=== PATIENT | male | born 1985 | race Two or more races ===

== ENCOUNTER 2017-11-14 11:32 | Observation (INO) | payer BC ==
[2017-11-14 11:39] VITALS: BMI 23.3
--- NOTE | 2017-11-14 12:19 | PDOC ---
History of Present Illness - General Chief Complaint: Palpitations Stated Complaint: PALPITATIONS Time Seen by Provider: 11/14/17 12:05 History Source: Patient Exam Limitations: No Limitations - History of Present Illness Initial Comments: 11/14/17 12:47 Patient came for evaluation of recurrent episodes of palpitations and rapid heart rate. States onto previous occasions patient was resting the first episode where all of a sudden he felt a pounding to his chest wall that made him short of breath with radiating pain spontaneously resolved. States last , 5 days ago left the gym was driving home and felt he had to cake puller because of this pounding in his chest again. States became short of breath,? Hyperventilating? service aide 911. By the time EMS arrived patient states he felt fine and chose not to pursue an evaluation. States today again after leaving the gym from doing exercises- only lifting, nonaerobic states was not extraordinarily exertive, experiences same type of palpitation. Cousin was in the car who reports patient was not diaphoretic, did not appear to be hyperventilating but had complaints of this palpitations. A both chose to come to emergency department for his evaluation. Has never been evaluated for this kind of pain. No family member has cardiac issues other than elderly grandmother with a pacemaker. Patient denies recent URI including cough, cold, fevers or sore throat pain. Patient denies history issue or cardiac anomalies. Although he was a premature child and is uncertain as to how many weeks early. Has never taken any medications for relief of symptoms. Does not drink, smoke any substance, no drug use. Works as a wafer fab technician for hospital beds but has not performed any heavy lifting or any recent trauma. Timing/Duration: unsure, 4-6 hours Severity: mild, moderate Associated Symptoms: reports: chest pain. denies: loss of appetite, malaise, nausea/vomiting Past History - Travel Traveled outside of the country in the last 30 days: No Close contact w/someone who was outside of country & ill: No - Past Medical History Allergies/Adverse Reactions: Allergies Allergy/AdvReac Type Severity Reaction Status Date / Time No Known Allergies Allergy Verified 11/14/17 11:57 Home Medications: Ambulatory Orders No Home Medications 0 dose .ROUTE UTDICT 11/13/13 COPD: No - Suicide/Smoking/Psychosocial Hx Smoking Status: No Smoking History: Never smoked Number of Cigarettes Smoked Daily: 0 Information on smoking cessation initiated: No Hx Alcohol Use: No Drug/Substance Use Hx: No Substance Use Type: None Review of Systems - Review of Systems Able to Perform ROS?: Yes Is the patient limited [place] proficient: Yes Constitutional: Yes: Symptoms Reported, See HPI HEENTM: Yes: See HPI. No: Symptoms Reported Respiratory: Yes: See HPI, Shortness of Breath, SOB with Exertion (reports a mild exercise intolerance). No: Symptoms reported, Cough Integumentary: Yes: Symptoms Reported All Other Systems: Reviewed and Negative *Physical Exam - Vital Signs Last Vital Signs Temp Pulse Resp BP Pulse Ox 98.0 F 118 H 18 120/69 100 11/14/17 11:35 11/14/17 11:35 11/14/17 11:35 11/14/17 11:35 11/14/17 11:35 - Physical Exam General Appearance: Yes: Nourished, Appropriately Dressed. No: Apparent Distress, Mild Distress HEENT: positive: TRACIE, Normal ENT Inspection, TMs Normal, Pharynx Normal Neck: positive: Supple. negative: Tender, Lymphadenopathy (R), Lymphadenopathy (L) Respiratory/Chest: positive: Lungs Clear, Normal Breath Sounds, Other (patient has some tenderness reproduced with palpation to the left-sided chest wall, worse with flexion and extension to arm) Cardiovascular: positive: Regular Rhythm, Regular Rate Gastrointestinal/Abdominal: positive: Normal Bowel Sounds, Soft Extremity: positive: Normal Capillary Refill, Normal Inspection. negative: Tender Integumentary: positive: Normal Color, Dry, Warm Neurologic: positive: nba player II-XII NML intact, Fully Oriented, Alert, Normal Mood/ Affect, Normal Response, Motor Strength 5/5 Heart Score/ECG Review - ECG Intrepretation Rhythm: Regular Rhythm - ST and T Non Specific ST-T Wave changes: No Prolonged Q-T Interval: No - ECG Impressions Normal ECG: Yes Non-specific ST Elevation: No Ischemic Changes: No ED Treatment Course - LABORATORY CBC & Chemistry Diagram: 11/14/17 12:41 11/14/17 12:41 Medical Decision Making - Medical Decision Making 11/14/17 13:[address] Jonathan gonzalez feels due to patient's recurrence of palpitations would benefit from a short stay telemetry monitoring to rule out any cardiac arrhythmias. Discussed with patient who agrees with plan. Will be moved to [facility] department placed on monitor and admission for observation telemetry placed *DC/Admit/Observation/Transfer Diagnosis at time of Disposition: Palpitations - Discharge Dispostion Condition at time of disposition: Stable Decision to Admit order: Yes - Referrals Referrals: Theodore Lepe MD [Primary Care Provider] - - Patient Instructions Additional Instructions: Rest - Post Discharge Activity
[2017-11-14 12:50] LABS: BASO % 0.8 % (0-2.0); EOS % 1.4 % (0-4.5); HEMATOCRIT 42.8 % (35.4-49); HEMOGLOBIN 14.3 GM/dL (11.7-16.9); LYMPH % 23.1 % (8-40); MCH 30.9 pg (25.7-33.7); MCHC 33.5 g/dl (32.0-35.9); MEAN CELL VOLUME 92.1 fl (80-96); MEAN PLT VOLUME 9.5 fl (7.5-11.1); MONO % 9.3 % (3.8-10.2); NEUT % 65.4 % (42.8-82.8); PLATELET COUNT 182 K/MM3 (134-434); RBC 4.64 M/mm3 (4.00-5.60); RDW 13.5 % (11.9-15.9); WHITE BLOOD COUNT 6.4 K/mm3 (4.0-10.0)
[2017-11-14 13:24] LABS: ALK PHOS 57 U/L (45-117); ANION GAP 5 (8-16); BILIRUBIN,TOTAL 0.4 mg/dL (0.2-1.0); BLOOD UREA NITROGEN 14 mg/dL (7-18); CALCIUM 8.9 mg/dL (8.5-10.1); CHLORIDE 107 mmol/L (98-107); CO2 27 mmol/L (21-32); CREATININE 1.1 mg/dL (0.7-1.3); GLUCOSE,RANDOM 82 mg/dL (74-106); POTASSIUM 4.3 mmol/L (3.5-5.1); SGOT/AST 22 U/L (15-37); SGPT/ALT 29 U/L (12-78); SODIUM 139 mmol/L (136-145); TOT PROT 7.4 g/dl (6.4-8.2)
--- NOTE | 2017-11-14 21:20 | EKG ---
Test Reason : Blood Pressure : / mmHG Vent. Rate : 094 BPM Atrial Rate : 094 BPM P-R Int : 152 ms QRS Dur : 076 ms QT Int : 322 ms P-R-T Axes : 067 078 066 degrees QTc Int : 402 ms NORMAL SINUS RHYTHM WITH SINUS ARRHYTHMIA NORMAL ECG WHEN COMPARED WITH ECG OF 27-JAN-2013 21:58, VENT. RATE HAS INCREASED BY 31 BPM Confirmed by SYLVIA OHARA MD ([id number]) on 11/14/2017 9:20:15 PM Referred By: Confirmed By:SYLVIA OHARA MD
[2017-11-14] MEDS: HEPARIN NA (PORCINE) 5,000 UNITS/ML 1ML VIAL SQ SCH (22:21)
[2017-11-15 07:21] LABS: BASO % 0.5 % (0-2.0); EOS % 1.2 % (0-4.5); HEMATOCRIT 41.8 % (35.4-49); HEMOGLOBIN 14.3 GM/dL (11.7-16.9); LYMPH % 28.7 % (8-40); MCH 31.7 pg (25.7-33.7); MCHC 34.3 g/dl (32.0-35.9); MEAN CELL VOLUME 92.5 fl (80-96); MEAN PLT VOLUME 10.1 fl (7.5-11.1); NEUT % 60.6 % (42.8-82.8); PLATELET COUNT 167 K/MM3 (134-434); RBC 4.51 M/mm3 (4.00-5.60); RDW 13.6 % (11.9-15.9); WHITE BLOOD COUNT 6.9 K/mm3 (4.0-10.0)
[2017-11-15 07:27] LABS: ALBUMIN 3.5 g/dl (3.4-5.0); ANION GAP 3 (8-16); BILIRUBIN,TOTAL 0.4 mg/dL (0.2-1.0); BLOOD UREA NITROGEN 14 mg/dL (7-18); CALCIUM 8.8 mg/dL (8.5-10.1); CHLORIDE 104 mmol/L (98-107); CHOLESTEROL 112 mg/dL (50-200); CO2 32 mmol/L (21-32); CREATININE 1.1 mg/dL (0.7-1.3); GLUCOSE,RANDOM 84 mg/dL (74-106); POTASSIUM 3.9 mmol/L (3.5-5.1); SGOT/AST 19 U/L (15-37); SGPT/ALT 30 U/L (12-78); SODIUM 139 mmol/L (136-145); TOT PROT 6.7 g/dl (6.4-8.2); TRIGLYCERIDES 46 mg/dL (35-160)
[2017-11-15 07:28] LABS: ALK PHOS 47 U/L (45-117); HDL CHOLESTEROL 43 mg/dL (40-60)
[2017-11-15] MEDS: HEPARIN NA (PORCINE) 5,000 UNITS/ML 1ML VIAL SQ SCH (10:06)
--- NOTE | 2017-11-15 12:28 | CON.CARD ---
Consult Consult Specialty:: Cardiology - History of Present Illness Chief Complaint: Palpitations History of Present Illness: 31 yo healthy man with recent dysnea on effort and sudden palpitations with a sensation of rapid heart beating lasting a few min but waking him up at night and associated with some dizziness. Telemetry overnight showed sinus tachycardia and echocardiogram has been normal. Nl ECG. - History Source History Provided By: Patient Limitations to Obtaining History: No Limitations - Alcohol/Substance Use Hx Alcohol Use: No - Smoking History Smoking history: Never smoked Have you smoked in the past 12 months: No Aproximately how many cigarettes per day: 0 Home Medications - Allergies Allergies/Adverse Reactions: Allergies Allergy/AdvReac Type Severity Reaction Status Date / Time No Known Allergies Allergy Verified 11/14/17 11:57 - Home Medications Home Medications: Ambulatory Orders No Home Medications 0 dose .ROUTE UTDICT 11/13/13 Review of Systems - Review of Systems Constitutional: reports: No Symptoms Eyes: reports: No Symptoms HENT: reports: No Symptoms Neck: reports: No Symptoms Cardiovascular: reports: No Symptoms Respiratory: reports: No Symptoms Gastrointestinal: reports: No Symptoms Genitourinary: reports: No Symptoms Breasts: reports: No Symptoms Reported Vital Signs: Vital Signs Temperature 98.0 F 11/15/17 05:57 Pulse Rate 69 11/15/17 05:57 Respiratory Rate 18 11/15/17 05:57 Blood Pressure 112/74 11/15/17 05:57 O2 Sat by Pulse Oximetry (%) 98 11/14/17 21:00 Constitutional: Yes: Well Nourished, No Distress, Calm Eyes: Yes: WNL, Conjunctiva Clear, EOM Intact HENT: Yes: Atraumatic, Normocephalic Neck: Yes: Supple, Trachea Midline Respiratory: Yes: Regular, CTA Bilaterally Gastrointestinal: Yes: Normal Bowel Sounds Cardiovascular: Yes: Regular Rate and Rhythm JVD: No Carotid Bruit: No PMI: Non-Displaced Heart Sounds: Yes: S1, S2 Murmur: No: Systolic Murmur, Diastolic Murmur Musculoskeletal: Yes: WNL ...Motor Strength: WNL - Other Data Labs, Other Data: CBC, BMP 11/15/17 06:45 11/15/17 06:45 Troponin, BNP 11/14/17 11/14/17 11/15/17 12:41 19:00 01:25 Troponin I 0.02 0.02 < 0.02 11/15/17 06:45 Troponin I < 0.02 Troponin, BNP 11/14/17 11/14/17 11/15/17 12:41 19:00 01:25 Troponin I 0.02 0.02 < 0.02 11/15/17 06:45 Troponin I < 0.02 Ejection Fraction %: LVEF > or = 40 % Imaging - Results EKG: Image Reviewed (NSR nl axis and interval) Problem List - Problems (1) Palpitations Code(s): R00.2 - PALPITATIONS Assessment/Plan 31 yo healthy man with recent dysnea on effort and sudden palpitations with a sensation of rapid heart beating lasting a few min but waking him up at night and associated with some dizziness. Telemetry overnight showed sinus tachycardia and echocardiogram has been normal. Nl ECG. He may have intermittent arrhythmia which will need retirement monitoring. Discharge home with out patient follow up for an event monitor.
--- NOTE | 2017-11-15 16:13 | HP ---
Admitting History and Physical - Primary Care Physician PCP: Ish Espinosa - Admission Chief Complaint: PALPIATIONS History of Present Illness: NO PMHX, HERE WITH 1 WEEK OF RAPID PALPIATIONS AND POUNDING OF HIS CHEST WALL AT REST AND DURING EXERTION History Source: Patient, Medical Record - Smoking History Smoking history: Never smoked Have you smoked in the past 12 months: No Aproximately how many cigarettes per day: 0 - Alcohol/Substance Use Hx Alcohol Use: No Home Medications - Allergies Allergies/Adverse Reactions: Allergies Allergy/AdvReac Type Severity Reaction Status Date / Time No Known Allergies Allergy Verified 11/14/17 11:57 - Home Medications Home Medications: Ambulatory Orders No Home Medications 0 dose .ROUTE UTDICT 11/13/13 Review of Systems - Review of Systems Constitutional: reports: No Symptoms Eyes: reports: No Symptoms HENT: reports: No Symptoms Neck: reports: No Symptoms Cardiovascular: reports: Palpitations Respiratory: reports: No Symptoms Gastrointestinal: reports: No Symptoms Genitourinary: reports: No Symptoms Musculoskeletal: reports: No Symptoms Neurological: reports: No Symptoms Endocrine: reports: No Symptoms Hematology/Lymphatic: reports: No Symptoms Psychiatric: reports: No Symptoms Physical Examination Vital Signs: Vital Signs Temperature 98.1 F 11/15/17 14:00 Pulse Rate 68 11/15/17 14:00 Respiratory Rate 20 11/15/17 14:00 Blood Pressure 117/69 11/15/17 14:00 O2 Sat by Pulse Oximetry (%) 98 11/14/17 21:00 Constitutional: Yes: No Distress Eyes: Yes: WNL HENT: Yes: WNL Neck: Yes: WNL Cardiovascular: Yes: WNL Respiratory: Yes: WNL Gastrointestinal: Yes: WNL Renal/: Yes: WNL Musculoskeletal: Yes: WNL Extremities: Yes: WNL Edema: No Peripheral Pulses WNL: Yes Integumentary: Yes: WNL Wound/Incision: Yes: Clean/Dry Neurological: Yes: WNL ...Motor Strength: WNL Psychiatric: Yes: WNL Labs: CBC, BMP 11/15/17 06:45 11/15/17 06:45 Imaging - Results Ultrasound: Report Reviewed Problem List - Problems (1) Palpitations Code(s): R00.2 - PALPITATIONS Assessment/Plan ECHO AND TELEMETRY NO ACUTE SIGNIFICANT CHANGES NEEDS HOLTER MONITOR OUTPATIENT F/U PMD NO CAFFEINE NO PREWORKOUT SUPPLEMENTS NO EXERCISE UNTIL CLEARED BY CARDIOLOGY
--- NOTE | 2017-11-15 16:20 | DS ---
Physical Examination Vital Signs: Vital Signs Temperature 98.1 F 11/15/17 14:00 Pulse Rate 68 11/15/17 14:00 Respiratory Rate 20 11/15/17 14:00 Blood Pressure 117/69 11/15/17 14:00 O2 Sat by Pulse Oximetry (%) 98 11/14/17 21:00 Constitutional: Yes: No Distress Eyes: Yes: WNL HENT: Yes: WNL Neck: Yes: WNL Cardiovascular: Yes: WNL Respiratory: Yes: WNL Gastrointestinal: Yes: WNL Renal/: Yes: WNL Musculoskeletal: Yes: WNL Extremities: Yes: WNL Edema: No Peripheral Pulses WNL: Yes Integumentary: Yes: WNL Wound/Incision: Yes: Clean/Dry Neurological: Yes: WNL ...Motor Strength: WNL Psychiatric: Yes: WNL Labs: CBC, BMP 11/15/17 06:45 11/15/17 06:45 Discharge Summary Reason For Visit: PALPITATIONS Current Active Problems Palpitations (Acute) Condition: Stable - Instructions Diet, Activity, Other Instructions: Rest, NO EXERCISE UNTIL CARDIAC WORKUP RETURN TO [facility] TOMORROW FOR HOLTER MONITOR F/U WITH DR SUGGS AFTER HOLTER COMPLETED Referrals: Theodore Lepe MD [Primary Care Provider] - Disposition: HOME - Home Medications Comprehensive Discharge Medication List: Ambulatory Orders No Home Medications 0 dose .ROUTE UTDICT 11/13/13
[2017-11-15 19:44] VITALS: BP 109/65; PULSE 71; TEMP 98
== END 2017-11-15 17:09 | disposition home or self-care (01) ==
LOC: JERFT 11:32 → JER 11:32 → JERBED 13:34 → J4W 17:12 → INTOOBSV 20:26 → OBSVTOIN 20:26 → JERBED 20:26
PROVIDERS: ADMIT Family Medicine; ATTEND Family Medicine
DX: R00.2 Palpitations (principal)
CPT/HCPCS: 36415; 71046-TC-FY; 80053; 80061; 82550; 82553; 83036; 83721; 84436; 84479; 84484; 85025; 93005; 93010; 93306-TC; 99285-25; G0378; J1644

== ENCOUNTER 2018-09-17 01:21 | Emergency (ER) | payer BC ==
[2018-09-17 02:13] VITALS: BP 117/79; PULSE 87; TEMP 97.9; BMI 22.8
--- NOTE | 2018-09-17 02:39 | PDOC ---
Attending Attestation - Resident Resident Name: Jasmin Solano - ED Attending Attestation I have performed the following: I have examined & evaluated the patient, The case was reviewed & discussed with the resident, I agree w/resident's findings & plan - HPI HPI: 09/18/18 05:27 Pt had a feeling of palpitations and came to the ER. States that he has been under a lot of stress. - Physicial Exam PE: 09/18/18 00:19 Agree with resident exam Heart and lungs normal; abd soft NT ND - Medical Decision Making 09/17/18 02:45 Pt has a lot of stress; now feeling better and reassured in the ER. EKG normal. He will follow with PMD. 09/18/18 05:30 EKG NSR Heart Score/ECG Review - ECG Intrepretation Rhythm: Regular Rhythm - [place]: Normal - ST and T Early Repolarization: Yes Non Specific ST-T Wave changes: Yes
--- NOTE | 2018-09-17 02:46 | PDOC ---
History of Present Illness - General Chief Complaint: Tachycardia Stated Complaint: RAPID HEARBEAT/HEAD PRESSURE Time Seen by Provider: 09/17/18 01:56 History Source: Patient Exam Limitations: No Limitations - History of Present Illness Initial Comments: 09/17/18 02:43 Pt is a 32yo M with PMH of Migraines presenting to ED with complaints of palpitations and headache that started about 1-2 hours ago that has resolved. Pt states he was sleeping and woke up from palpitations and SOB. He was given sugar water by his mother and the palpitations resolved but he developed a headache on the sides of his head. He took Excedrin and the pain resolved. Palpitations lasted for 2-3 minutes and the headache lasted for about 30 minutes. Right now he does not have any complaints. He denies chest pain, sob, syncope, abdominal pain, numbness/tingling, headache, changes in vision, back pain, abdominal pain, n/v/d, rectal bleeding. Past History - Past Medical History Allergies/Adverse Reactions: Allergies Allergy/AdvReac Type Severity Reaction Status Date / Time No Known Allergies Allergy Verified 09/17/18 02:13 Anemia: No Asthma: No Cancer: No Cardiac Disorders: No CVA: No COPD: No CHF: No Dementia: No Diabetes: No GI Disorders: No Disorders: No HTN: No Hypercholesterolemia: No Liver Disease: No Seizures: No Thyroid Disease: No - Suicide/Smoking/Psychosocial Hx Smoking Status: No Smoking History: Never smoked Have you smoked in the past 12 months: No Number of Cigarettes Smoked Daily: 0 Information on smoking cessation initiated: No Hx Alcohol Use: Yes (Socially) Drug/Substance Use Hx: No Substance Use Type: None Review of Systems - Review of Systems Constitutional: No: Symptoms Reported HEENTM: No: Symptoms Reported Respiratory: No: Symptoms reported Cardiac (ROS): Yes: See HPI ABD/GI: No: Symptoms Reported : No: Symptoms Reported Musculoskeletal: No: Symptoms Reported Integumentary: No: Symptoms Reported Neurological: Yes: Headache. No: Numbness, Tingling, Tremors, Weakness *Physical Exam - Vital Signs Last Vital Signs Temp Pulse Resp BP Pulse Ox 97.9 F 87 17 117/79 100 09/17/18 01:21 09/17/18 01:21 09/17/18 01:21 09/17/18 01:21 09/17/18 01:21 - Physical Exam General Appearance: Yes: Nourished, Appropriately Dressed. No: Apparent Distress HEENT: positive: EOMI, TRACIE, Normal ENT Inspection Neck: positive: Trachea midline, Supple Respiratory/Chest: positive: Lungs Clear, Normal Breath Sounds Cardiovascular: positive: Regular Rhythm, Regular Rate. negative: Murmur Vascular Pulses: Carotid (R): 2+, Carotid (L): 2+, Dorsalis-Pedis (R): 2+, Doralis-Pedis (L): 2+ Gastrointestinal/Abdominal: positive: Normal Bowel Sounds, Soft. negative: Tender Musculoskeletal: negative: CVA Tenderness Extremity: positive: Normal Capillary Refill Integumentary: positive: Normal Color, Dry, Warm Neurologic: positive: traffic representative II-XII NML intact, Fully Oriented, Alert, Normal Mood/ Affect, Normal Response, Motor Strength /5 Medical Decision Making - Medical Decision Making 09/19/18 14:49 Pt is a 32yo M with PMH of Migraines presenting to ED with complaints of palpitations and headache that started about 1-2 hours ago that has resolved. Pt states he was sleeping and woke up from palpitations and SOB. He was given sugar water by his mother and the palpitations resolved but he developed a headache on the sides of his head. He took Excedrin and the pain resolved. Palpitations lasted for 2-3 minutes and the headache lasted for about 30 minutes. Right now he does not have any complaints. He denies chest pain, sob, syncope, abdominal pain, numbness/tingling, headache, changes in vision, back pain, abdominal pain, n/v/d, rectal bleeding. vitals wnl PE; benign -ekg ekg shows nsr, no delta waves, normal pr, normal qrs, normal qtc. pt had symptoms in the past and was seen. pt does not have complaints at this time,. stable for dc home. will give cardiology f/u. pt agrees to plan *DC/Admit/Observation/Transfer Diagnosis at time of Disposition: Palpitations, Stress reaction - Discharge Dispostion Disposition: HOME Condition at time of disposition: Improved Decision to Admit order: No - Referrals Referrals: Ricardo Hubbard MD [Primary Care Provider] - Oscar Umaña MD [Staff Physician] - Robin Lopez MD [Staff Physician] - - Patient Instructions Printed Discharge Instructions: DI for Palpitations Additional Instructions: You were seen in the emergency room for palpitations. Your EKG here is normal. I recommend that you see your doctor in the next few days to talk about your symptoms and for further tests. I also recommend seeing a sheet turner for the palpitations and a neurologist for the headaches. Information is provided below. Come back to the emergency room if you have palpitations, you pass out, have chest pain, cannot breathe or if any new concerning symptom develops. Thank you - Post Discharge Activity Forms/Work/School Notes: Back to Work
--- NOTE | 2018-09-19 14:34 | EKG ---
Test Reason : Blood Pressure : / mmHG Vent. Rate : 081 BPM Atrial Rate : 081 BPM P-R Int : 150 ms QRS Dur : 080 ms QT Int : 346 ms P-R-T Axes : 046 078 052 degrees QTc Int : 401 ms NORMAL SINUS RHYTHM NORMAL ECG WHEN COMPARED WITH ECG OF 14-NOV-2017 11:42, NO SIGNIFICANT CHANGE WAS FOUND Confirmed by MD SULTANA, JOSH ([id number]) on 09/19/2018 2:33:40 PM Referred By: Joelle CHANG Confirmed By:JOSH WEINBERG MD
== END 2018-09-17 03:00 | disposition home or self-care (01) ==
LOC: JER 01:21
DX: F43.8 Other reactions to severe stress (principal); R00.2 Palpitations
CPT/HCPCS: 93005; 93010; 99282-25

== ENCOUNTER 2023-11-24 11:39 | Emergency (ER) | payer BC ==
[2023-11-24 11:51] VITALS: BP 118/81; PULSE 97; RESP 20; TEMP 99; BMI 25.2
[2023-11-24] MEDS ORDERED: ALBUTEROL SO4 2.5/IPRATROPIUM 0.5 INH SOL 3 ML VIAL.NEB. NEB ONE (12:46)
[2023-11-24] MEDS ORDERED: IBUPROFEN 400 MG TABLET (FP) PO ONE (12:47)
[2023-11-24] MEDS: IBUPROFEN 400 MG TABLET (FP) PO ONE (12:59)
[2023-11-24] MEDS: ALBUTEROL SO4 2.5/IPRATROPIUM 0.5 INH SOL 3 ML VIAL.NEB. NEB ONE (12:59)
[2023-11-24] MEDS ORDERED: DEXAMETHASONE 4 MG TABLET (FP) ONE (13:29)
[2023-11-24] MEDS: DEXAMETHASONE 4 MG TABLET (FP) PO ONE (13:35)
== END 2023-11-24 13:50 | disposition home or self-care (01) ==
LOC: JER 11:39
PROC: 3E0F7GC Introduction of Other Therapeutic Substance into Respiratory Tract, Via Natural or Artificial Opening (ICD-10-PCS; principal; 2023-11-24)
DX: M54.6 Pain in thoracic spine (principal); R05.9 Cough, unspecified; R31.29 Other microscopic hematuria; Z20.822 Contact with and (suspected) exposure to COVID-19
CPT/HCPCS: 71046-TC-FY; 87635; 93005; 93010; 99285-25